=== PATIENT | male | born 1980 | race Caucasian/White ===

== ENCOUNTER 2024-08-17 03:11 | Inpatient (IN) | payer OTHER, SELFPAY ==
[2024-08-16 21:06] VITALS: BP 135/88
[2024-08-16 21:10] VITALS: BP 135/88
--- NOTE | 2024-08-16 21:27 | EDRN ---
When RN entered pt.'s room, pt. had been transferred from EMS stretcher to ER stretcher. Pt. had initially refused to change clothes, refused to get off of multiple items, including bedpan, that lay beneath pt. Pt. is c/o 'lower abdominal pain', pt.
pointing to his rt. flank that radiates to his rt. lower back. RN explained to pt. she is unable to perform abdominal assessment/lower back assessment if he is sitting on bedpan. Pt. then agreeable for RN's to assist w/ turning and removing bedpan.
When pt. turned on side, RN's removed pink bedpan filled w. towels, a can of WD40, 4 water bottles, and 3 jars of peanut butter, and deodorant... all of which was found underneath pt.'s sacrum. Pt. in black tank top, refused to remove. Pt. continues
to ask for his backpack, stating, 'I threw my wallet in there and I don't see it in there now'. No wallet found beneath pt., pt. handed his bag, which staff did not go through.
[2024-08-16 21:33] VITALS: BMI 17.3
--- NOTE | 2024-08-16 21:40 | ED.GENMED ---
History of Present Illness
General
Chief Complaint: Abdominal Pain
Source: patient
Exam Limitations: none
Time Seen by Provider: 08/16/24 21:13
History of Present Illness
History of Present Illness:
This is a 44 year old male that comes in with c/o right sided abd pain. States that this started 4-5 days ago and that at first it was intermittent. States that know the pain has continued and is also in the back. States that he did have a BM 2 days
ago and this is normal for him. States that he had nausea. Denies any fever, chills, chest pain, SOB, vomiting, diarrhea, headache, dizziness, urinary burning.
Past History
Past History
ED Past Medical History: Psychiatric (Anxiety, Depression. Insomnia) and Other (, Vishnu leg wounds . 'Mitral valve Problem' , Constipation, Chronic pain, PVD, MItral valve disorder, Cellulitis, Facial muscle weakness due to Muscular dystrophy, ADHD,
)
ED Past Surgical History: None and Tonsilectomy
Social History
Tobacco: Former smoker
Alcohol: None
Drug: None
Personal: Single
Living: [facility]
Employment: Disabled
Review of Systems
Review of Systems
All Other Systems: ROS reviewed and negative except as documented in HPI and ROS
Constitutional: Reports no symptoms; Denies fever or chills
EENT: Reports no symptoms
Respiratory: Reports no symptoms; Denies cough or trouble breathing
Cardiac: Reports no symptoms; Denies chest pain
ABD/GI: Reports abdominal pain and nausea; Denies vomiting or diarrhea
: Reports no symptoms; Denies dysuria, frequency or urgency
Musculoskeletal: Reports no symptoms
Skin: Reports no symptoms
Neurological: Reports no symptoms; Denies dizzy or headache
Psychiatric: Reports no symptoms
Phy Exam
General Physical Exam
General Presentation: no apparent distress
General age: appears older than age
General Skin: warm and dry
General Habitus: poor hygiene
General Mental: alert
General Hydration: appears well hydrated
ENT Exam
ENT Exam: TM's normal and pharynx normal
Eye Exam
Eye Exam: EOMI
Cardiovascular Exam
Cardiovascular Exam: regular rate/rhythm, no edema and normal peripheral pulses
Pulmonary Exam
Pulmonary Exam: lungs clear, no respiratory distress, no rales, chest non tender, no crackles, no rhonchi, no wheezing and no cough
Gastrointestinal Exam
Gastrointestinal Exam: soft, no organomegaly, no pulsatile mass, non distended, tender (Right sided tenderness with palpation) and other (Hypoactive bowel sounds)
Musculoskeletal Exam
Musculoskeletal Exam: other (Severe foot drop, Patient states that he is unable to sit up for any length of time due to his Muscular distrophy)
Skin Exam
Skin Exam: normal color, warm/dry, no petechia and other (Scratch dickerson noted on the lower extremities. )
Psychiatric Exam
Psychiatric Exam: normal mood/affect
Course
Orders/Labs/Results
Orders:
Orders
08/16/24 21:36
Straight cath- Treatment ONCE
08/16/24 21:39
Iohexol [Omnipaque] See Protocol PO NOW STA
08/16/24 21:40
0.9% Sodium Chloride 500 ml [Nss] 500 ml IV BOLUS
08/16/24 21:41
Ondansetron Injectable [Zofran] 4 mg IV NOW STA
08/16/24 21:55
Complete Blood Count/With Diff Urgent
Comprehensive Metabolic Panel Urgent
UA Reflex to Culture [Urinalysis Reflex To Culture] Urgent
Date Specimen was Collected: 08/16/24
Time Specimen was Collected: 21:36
Urine Microscopic Reflex Cult Urgent
Urine Culture Urgent
PARTH Source: U
Specimen Description:
Date Specimen was Collected: 08/16/24
Time Specimen was Collected: 21:36
08/17/24 00:06
CT Abd/pel W Iv And Oral Contr Urgent
Reason For Exam: Right lower abd pain
Abnormal Lab Results
08/16/24
21:55
MPV 11.1 H fL
(7.4-10.4)
Absolute Neuts (auto) 8.3 H 10^3/uL
(1.4-6.5)
Absolute Lymphs (auto) 0.5 L 10^3/uL
(1.2-3.4)
Neutrophils % 91.4 H %
(42.2-75.2)
Lymphocytes % 5.4 L %
(20.5-51.1)
BUN 22 H mg/dl
(9-20)
Glucose 141 H mg/dl
(70-99)
Urine Ketones Trace A
(Negative)
Ur Occult Blood Reflex 4+ A
(Negative)
Urine Bilirubin 1+ A
(Negative)
Urine RBC 50-60 A /HPF
(0-2)
Urine Bacteria (Reflex) Moderate A
(Negative)
08/16/24 21:55
08/16/24 21:55
Dehydration, Hyperglycemia. Urine negative for infection.
Vital Signs
Initial and Last Documented VS:
Initial Vital Signs
Temp
97.7 F
08/16/24 21:05
Last Documented Vital Signs
Temp Pulse Resp BP Pulse Ox
97.7 F 90 18 114/88 99
08/16/24 21:05 08/16/24 21:10 08/16/24 21:10 08/16/24 23:00 08/16/24 21:22
MDM/Problems Addressed
Differential Diagnosis Includes:
Appendicitis, Constipation
MDM/Problems Addressed:
This is a 44 year old male that comes in with c/o RLQ and pain into his back for the past 4-5 days. States that it was intermittent.
Will check labs, CT scan , give IV fluids
Back into see patient. Explained that he has a very large renal calculus and constipation. Message sent to Dr. Sarabia.
Agree's that patient may not pass this stone but wanted patient to try going back to the [facility]. Patient states that he is already on Chronic pain medication and that he will just be back due to the pain. Message sent again to Dr. Sarabia.
Will admit patient to the hospitalist. Will keep patient NPO as possible procedure tomorrow. Dr Sarabia on Consult
Chronic conditions affecting care:
Chronic pain, Muscular dystrophy
Acute Exacerbation and/or Progression of Chronic Illness:
Chronic pain
*Radiology
Radiology exam reviewed: radiology read reviewed (CT Night hawk- 1.5X 0.8 X 1.3 cm obstructing stone at the right ureteropelvic junction resulting in moderate hydroneprhrosis to level of the stone. Previously the stone was noted to be in the central
intrarenal collecting system. There is stranding of fluid around the right kidney which may be due ), all reviewed NAD by ED Provider (CT cont- may be due to obstructing and/or infection. Please correlate with urinalysis. Small nonobstructing stone
upper pole left kidney and mid pole right kidney. No bowel obstruction. Moderate amount of stool in the colon suggesting constipation. Normal appendix. Gallbladder is unremarkable. ) and other (CT cont- MIld atelectasis lung bases. Degenerative
changes spine and hips)
*Pulse Oximetry
Patient hypoxic: no
*EKG
Interpreted by ED Provider?: NA
*[employer] Counter Associate Interpretation
Rate: [employer] Counter Associate- N/A
*Critical Care Note
Total Time (30-74mins, 75-104mins- exclusive of procedures): Not Applicable
ED Attending Note
-
Portions of this chart may have been created with voice recognition software.� Occasional wrong word or��sound alike� substitutions may have occurred due to the inherent limitations of voice recognition software.
Discharge Plan
Departure
Patient Disposition: Admit
Date of Disposition: 08/17/24
Time of Disposition: 01:55
Admit to: Med/Surg
Presentation/result/management discussed w/ accepting MD/DO: Hospitalist
Patient with high blood pressure during this ER visit?: No
Condition: Good
Covid-19: Not Applicable
Discharge Problem:
Renal calculus, right, Constipation
Prescriptions:
No Action
zolpidem 10 MG tablet
10 mg PO HS
fluticasone propionate 1 SPRAY spray,suspension
2 spray intranasal DAILYPRN PRN (Reason: allergies)
acetaminophen 325 MG tablet
650 mg PO Q4HPRN PRN (Reason: mild pain/temp>100F)
magnesium hydroxide 30 ML suspension
30 ml PO DAILY PRN (Reason: if no bm x 3 days)
bisacodyl [OneLAX Bisacodyl] 10 MG suppository
10 mg TX DAILYPRN PRN (Reason: if mom ineffective after 24h)
naproxen 500 MG tablet
500 mg PO BID
loperamide 2 mg Tablet
2 mg PO DAILYPRN MDD 8MG PRN (Reason: loose stool)
Fleet Enema 19-7 gram/118 mL Enema
118 ml TX DAILYPRN PRN (Reason: if dulcolax ineffective in 24h)
Sarna Original 0.5-0.5 % Lotion
1 applic TOPICAL DAILY
clonazepam 1 mg Tablet
1 mg PO QID Qty: 4 0RF
oxycodone 10 mg Tablet
10 mg PO Q6HPRN PRN (Reason: moderate pain) Qty: 4 0RF
ondansetron [Zofran ODT] 8 mg Tablet,Disintegrating
8 mg PO Q8HPRN PRN (Reason: NAUSEA)
morphine [MS Contin] 60 mg tablet extended release
60 mg PO BID
morphine [MS Contin] 15 mg tablet extended release
15 mg PO BID
lactase [Lactaid Fast Act] 9,000 unit Tablet
9,000 unit PO Q12H PRN (Reason: lactose intolerance)
pantoprazole 40 mg Tablet,Delayed Release (Dr/Ec)
40 mg PO DAILY
alum-mag hydroxide-simeth [Maalox Maximum Strength] 400-400-40 mg/5 mL Suspension
30 ml PO Q6H PRN (Reason: indigestion)
escitalopram oxalate 20 mg Tablet
20 mg PO DAILY
Referrals:
Triston Jones I., DO [Family Provider] -
Interventions
Interventions:
*Risk Screen - Suicide Last Done: 08/16/24 21:34
*General Assessment Last Done: 08/16/24 21:09
*Neglect/Abuse Screening Last Done: 08/16/24 21:09
*ED COVID-19 Vaccine History Last Done: 08/16/24 21:09
ED-Zifohj-Qhplufcdoh Assessment Last Done: 08/16/24 21:32
Discharge Date and Time
Print Language: THAI
[2024-08-16 22:00] VITALS: BP 129/99
[2024-08-16] MEDS: ZOFRAN 4 MG IV (22:02)
[2024-08-16 22:03] LABS: % Basophils 0.2 % (0-2); % Eosinophils 0.1 % (0-6); % Immature Granulocytes 0.3 % (0-0.5); % Lymphocytes 5.4 % (20.5-51.1); % Monocytes 2.6 % (1.7-9.3); % Neutrophils 91.4 % (42.2-75.2); Absolute Lymphocytes 0.5 10^3/uL (1.2-3.4); Absolute Monocytes 0.2 10^3/uL (0.1-0.6); Absolute Neutrophils 8.3 10^3/uL (1.4-6.5); Hematocrit 39.3 % (39.0-52.0); Hemoglobin 13.4 g/dL (13.0-18.0); Mean Corp Hgb Conc. 34.1 g/dL (33.0-37.0); Mean Corpuscular Hgb 28.3 pg (27.0-31.0); Mean Corpuscular Volume 82.9 fL (80.0-94.0); Mean Platelet Volume 11.1 fL (7.4-10.4); Nucleated Red Blood Cells % 0 % (-); Platelet Count 173 10^3/uL (130-400); Red Blood Cell Count 4.74 10^6/uL (4.70-6.10); Red Cell Dist. Width 12.8 % (11.5-14.5); Urine Albumin Trace (Neg - Trace); Urine Bilirubin 1+ (Negative); Urine Character Clear (Clear); Urine Color Yellow; Urine Glucose Negative (Negative); Urine Ketone Trace (Negative); Urine Leukocyte Negative (Negative); Urine Nitrite Negative (Negative); Urine Occult Blood 4+ (Negative); Urine Specific Gravity 1.025 (<1.030); Urine Urobilinogen 1+ (Neg - 1+); White Blood Cell Count 9.1 10^3/uL (4.8-10.8)
[2024-08-16] MEDS: OMNIPAQUE 50 ML PO (22:06)
[2024-08-16] MEDS: NSS 500 IV (22:11)
[2024-08-16 22:12] LABS: Urine Squamous Cell 0-2 /LPF (Few)
[2024-08-16 22:13] LABS: Urine Bacteria Moderate (Negative); Urine Red Blood Cell 50-60 /HPF (0-2); Urine White Cell 0-2 /HPF (0-5)
[2024-08-16 22:24] LABS: ALT (SGPT) 15 U/L (0-50); AST (SGOT) 19 U/L (17-59); Albumin 4.4 g/dl (3.5-5.0); Alkaline Phosphatase 106 U/L (38-126); Blood Urea Nitrogen 22 mg/dl (9-20); Calcium 9.8 mg/dl (8.4-10.2); Carbon Dioxide 25 mmol/L (22-30); Chloride 103 mmol/L (98-107); Estimated Creatinine Clearance 109 ml/min; Glucose 141 mg/dl (70-99); Potassium 3.9 mmol/L (3.5-5.1); Sodium 143 mmol/L (135-145); Total Bilirubin 0.6 mg/dl (0.2-1.3); Total Protein 7.6 g/dl (6.3-8.2); eGFR > 60.00
[2024-08-16 23:00] VITALS: BP 114/88
[2024-08-17] VITALS (9 sets, daily range): BP systolic 96–124; BP diastolic 67–89
[2024-08-17] MEDS: FLOMAX 0.4 MG PO ×2 (01:57→08:46)
[2024-08-17] MEDS: TORADOL 30 MG IV ×2 (01:57→13:31)
--- NOTE | 2024-08-17 02:26 | HPS.HSE ---
Family Physician
-
Family Physician: Triston Jones
Chief Complaint
-
Flank Pain
History of Present Illness
Patient is a 44y M with PMH significant for muscular dystrophy who presents to ED complaining of R flank pain and hematuria. Patient states that he has noted hematuria x months - but attributed this color change to muscle breakdown from his
muscular dystrophy. he noted R flank pain over the past 5 days - much more severe this evening. He has had nausea with emesis here in the ED. CT scan shows large proximal R ureter stone and pateint will be admitted for further evaluation and
treatment.
Medical History
Past Medical History
Past Medical History: Reports Other
Additional Past Medical History:
Muscular Dystrophy
Functional Paraplegia
GERD
Chronic Pain Syndrome
Chronic Opioid Dependence
Past Surgical History: Reports None
Social History
Tobacco: Non-smoker
Alcohol: None
Drug: None
Living: Half-Way
Family History
Family History: Not pertinent
Allergies / Home Medications
Allergies reflects when Allergies were last updated in [facility].
Home Medications with original date entered in [facility]
Allergy/Medication List:
Allergies
Allergy/AdvReac Type Severity Reaction Status Date / Time
No Known Allergies Allergy Verified 08/16/24 21:05
Home Medications
fluticasone propionate 50 mcg/actuation nasal spray,suspension 2 spray intranasal DAILYPRN PRN allergies 07/20/16
zolpidem 10 mg tablet 10 mg PO HS Sleep 07/20/16
acetaminophen 325 mg tablet 650 mg PO Q4HPRN PRN mild pain/temp>100F 06/17/21
bisacodyl 10 mg rectal suppository (OneLAX Bisacodyl) 10 mg TX DAILYPRN PRN if mom ineffective after 24h 06/17/21
magnesium hydroxide 400 mg/5 mL oral suspension 30 ml PO DAILY PRN if no bm x 3 days 06/17/21
camphor-menthol 0.5 %-0.5 % lotion (Sarna Original) 1 applic topical DAILY b/l lower extremity for itching 10/31/22
loperamide 2 mg tablet 2 mg PO DAILYPRN PRN loose stool 10/31/22
sodium phosphates 19 gram-7 gram/118 mL enema (Fleet Enema) 118 ml TX DAILYPRN PRN if dulcolax ineffective in 24h 10/31/22
clonazepam 1 mg tablet 1 mg PO QID #4 tabs 11/03/22
oxycodone 10 mg tablet 10 mg PO Q6HPRN PRN moderate pain #4 tabs 11/03/22
morphine 15 mg tablet,extended release (MS Contin) 15 mg PO BID TAKE WITH 60MG 11/30/22
morphine 60 mg tablet,extended release (MS Contin) 60 mg PO BID TAKE [id number] 11/30/22
aluminum-mag hydroxide-simethicone 400 mg-400 mg-40 mg/5 mL oral susp (Maalox Maximum Strength) 30 ml PO Q6H PRN indigestion 01/01/23
escitalopram oxalate 20 mg tablet 20 mg PO DAILY 01/01/23
pantoprazole 40 mg tablet,delayed release 40 mg PO DAILY 01/01/23
cetirizine 10 mg tablet 10 mg PO DAILY PRN allergy 08/17/24
ipratropium 20 mcg-albuterol 100 mcg/actuation mist for inhalation (Combivent Respimat) 1 puff inhalation Q6H PRN sob, wheezing 08/17/24
mineral oil 3 drp otic (ear) .QTUES 08/17/24
promethazine 12.5 mg tablet 12.5 mg PO Q8H PRN allergy/nausea 08/17/24
testosterone 50 mg/5 gram (1 %) transdermal gel 1 tube transdermal DAILY 08/17/24
Review of Systems
-
History Source: Patient
A 12 point ROS was completed and negative except as noted: Yes
Constitutional: Denies Fever or Chills
Respiratory: Denies Cough or Trouble Breathing
Cardiac: Denies Chest Pain or Palpitations
Abdomen/GI: Reports Abdominal Pain, Nausea and Vomiting; Denies Diarrhea or Constipated
: Reports Flank Pain and Bleeding; Denies Dysuria or Frequency
Neurological: Reports Weakness; Denies Dizzy or Headache
Psych: Reports Depression and Anxiety
Physical Exam
Vital Signs
Vital Signs
Temp Pulse Resp BP Pulse Ox
97.7 F 90 18 114/88 99
08/16/24 21:05 08/16/24 21:10 08/16/24 21:10 08/16/24 23:00 08/16/24 21:22
Physical Exam
General: Other (44y M in no acute distress.)
HEENT: Other (Dry MM. Poor dentition.)
Respiratory: Clear; No Wheezes, Rales or Rhonchi
Cardiac: S1/S2 and Regular Rhythm; No Murmur
GI: Soft, Non Distended, Normal Bowel Sounds and Other (Mild R abdominal tenderness. No rebound / guarding.)
Genito-urinary: Costovertebral angle tend (Pos R CVAT.)
Neuro: AO x 3 and Other (LE weakness / contractures - chronic due to muscular dystrophy.)
Laboratory Results
-
08/16/24 21:55
08/16/24 21:55
Laboratory Results
Total Bilirubin 0.6 mg/dl (0.2-1.3) 08/16/24 21:55
AST 19 U/L (17-59) 08/16/24 21:55
ALT 15 U/L (0-50) 08/16/24 21:55
Alkaline Phosphatase 106 U/L (38-126) 08/16/24 21:55
Impression/Plan
-
A/P: Patient is a 44y M with PMH significant for muscular dystrophy who presents to ED complaining of R flank pain x several days.
Right Ureteral Stone
- Admit for further evaluation and treatment.
- Flank pain, N/V, etc.
- CT shows large proximal R ureteral stone.
- No systemic fevers / chills. UA does not appear c/w infection.
- NPO, IVFs, pain control.
- Urology consulted for probable OR in the AM.
Muscular Dystrophy
Chronic Pain Syndrome
Chronic Opioid Dependence
- Stable. No new weakness, pain, etc.
- Continue current outpatient medication regimen without changes.
- Frequent repositioning, etc.
DVT Prophylaxis: SCDs
Code Status: Full
--- NOTE | 2024-08-17 03:10 | PTCARENOTE ---
Assumed care of Pt. Pt aaox3, uncooperative at times. This RN asked the Pt to remove his tank top because it had throw up on it and he continuously declines and says 'They can take it off of me when I am knocked out.' Pt rates pain 02/02. Denies
nausea at this time. pox 98% on RA. vss. Call jones within reach.
[2024-08-17] MEDS: NSS 1000 IV ×2 (06:01→17:19)
[2024-08-17 06:12] LABS: Hematocrit 36.3 % (39.0-52.0); Hemoglobin 12.4 g/dL (13.0-18.0); Mean Corp Hgb Conc. 34.2 g/dL (33.0-37.0); Mean Corpuscular Hgb 29.5 pg (27.0-31.0); Mean Corpuscular Volume 86.4 fL (80.0-94.0); Mean Platelet Volume 11.8 fL (7.4-10.4); Platelet Count 174 10^3/uL (130-400); Red Cell Dist. Width 12.6 % (11.5-14.5); White Blood Cell Count 8.2 10^3/uL (4.8-10.8)
[2024-08-17 06:41] LABS: Blood Urea Nitrogen 20 mg/dl (9-20); Calcium 8.7 mg/dl (8.4-10.2); Carbon Dioxide 25 mmol/L (22-30); Chloride 106 mmol/L (98-107); Estimated Creatinine Clearance 96 ml/min; Glucose 112 mg/dl (70-99); Potassium 4.2 mmol/L (3.5-5.1); Sodium 142 mmol/L (135-145); eGFR > 60.00
--- NOTE | 2024-08-17 08:44 | CONS.URO ---
Consultation
-
Performing Provider: No
Reason for Consultation: Stone
Medical History
History of Present Illness
44M without prior urologic history
PMH significant for muscular dystrophy who presents to ED complaining of R flank pain and hematuria. Patient states that he has noted hematuria for a few months - but attributed this color change to muscle breakdown from his muscular dystrophy.
5 days ago noticed onset and worsening of R flank pain
Has had nausea with emesis in the ER, pain better controlled after toradol
CT scan shows large proximal R ureter stone
Needed to be straight cathed in the ER on admission he says due to pain but subsequently has been able to void normally
No fevers/chills and no signs of sepsis
Past Medical History
Past Medical History: Other (Muscular Dystrophy Functional Paraplegia GERD Chronic Pain Syndrome Chronic Opioid Dependence)
Past Surgical History: None
Social History
Tobacco: Non-smoker
Alcohol: None
Drug: None
Family History
Family History: Reviewed & Not Pertinent
Allergies/Home Medications
Allergies
Allergy/AdvReac Type Severity Reaction Status Date / Time
No Known Allergies Allergy Verified 08/16/24 21:05
Home Medications
�Medication �Instructions �Recorded �Confirmed �Type
fluticasone propionate 50 2 spray intranasal DAILYPRN PRN 07/20/16 08/17/24 History
mcg/actuation nasal allergies
spray,suspension
zolpidem 10 mg tablet 10 mg PO HS Sleep 07/20/16 08/17/24 History
acetaminophen 325 mg tablet 650 mg PO Q4HPRN PRN mild 06/17/21 08/17/24 History
pain/temp>100F
bisacodyl 10 mg rectal suppository 10 mg ME DAILYPRN PRN if mom 06/17/21 08/17/24 History
(OneLAX Bisacodyl) ineffective after 24h
magnesium hydroxide 400 mg/5 mL 30 ml PO DAILYPRN PRN if no bm x 3 06/17/21 08/17/24 History
oral suspension days
camphor-menthol 0.5 %-0.5 % lotion 1 applic topical DAILY b/l lower 10/31/22 08/17/24 History
(Vanessa Original) extremity for itching
loperamide 2 mg tablet 2 mg PO DAILYPRN PRN loose stool 10/31/22 08/17/24 History
sodium phosphates 19 gram-7 118 ml ME DAILYPRN PRN if dulcolax 10/31/22 08/17/24 History
gram/118 mL enema (Fleet Enema) ineffective in 24h
clonazepam 1 mg tablet 1 mg PO QID #4 tabs 11/03/22 08/17/24 Rx
oxycodone 10 mg tablet 10 mg PO Q6HPRN PRN moderate pain 11/03/22 08/17/24 Rx
#4 tabs
morphine 15 mg tablet,extended 15 mg PO BID TAKE WITH 60MG 11/30/22 08/17/24 History
release (MS Contin)
morphine 60 mg tablet,extended 60 mg PO BID TAKE [id number] 11/30/22 08/17/24 History
release (MS Contin)
escitalopram oxalate 20 mg tablet 20 mg PO DAILY 01/01/23 08/17/24 History
pantoprazole 40 mg tablet,delayed 40 mg PO DAILY 01/01/23 08/17/24 History
release
aluminum-mag hydroxide-simethicone 15 ml PO Q6HPRN PRN upset stomach 08/17/24 08/17/24 History
225 mg-200 mg-25 mg/5 mL oral susp
cetirizine 10 mg tablet 10 mg PO DAILYPRN PRN allergy 08/17/24 08/17/24 History
ipratropium 20 mcg-albuterol 100 1 puff inhalation R Q6HPRN PRN 08/17/24 08/17/24 History
mcg/actuation mist for inhalation sob, wheezing
(Combivent Respimat)
mineral oil 3 drp TU both ears 08/17/24 08/17/24 History
promethazine 12.5 mg tablet 12.5 mg PO Q8HPRN PRN 08/17/24 08/17/24 History
allergy/nausea
testosterone 50 mg/5 gram (1 %) 50 mg transdermal DAILY 08/17/24 08/17/24 History
transdermal gel (Testim)
Physical Exam
Vital Signs
Vital Signs
Temp Pulse Resp BP Pulse Ox
99.1 F 90 18 114/88 99
08/17/24 03:08 08/16/24 21:10 08/16/24 21:10 08/16/24 23:00 08/16/24 21:22
Lab / Testing Results
Laboratory Results
08/17/24 05:57
08/17/24 05:57
Physical Exam
General: Well Developed, Well Nourished and No Apparent Distress
Respiratory: Non Labored Respirations
GI: Soft and Non Tender
Assessment / Plan
-
44M with muscular dystrophy presenting with large R proximal ureteral stone
Admitted for pain control and stone management
- UA not grossly infected but with moderate bacteria. Probably contaminant. Culture pending
- Start ceftriaxone for prophylaxis
- If no evidence of systemic infection, plan for cystoscopy and stent placement with attempt at ureteroscopy and stone extraction if able
- Okay for diet today, NPO at [facility]
Toradol as needed for pain episodes which have been effective for him in the ED
[2024-08-17] MEDS: LEXAPRO 20 MG PO (08:47)
[2024-08-17] MEDS: DILAUDID 0.5 MG IV ×2 (08:47→19:12)
[2024-08-17] MEDS: PROTONIX 40 MG PO (08:47)
[2024-08-17] MEDS: MS CONTIN (EXTENDED RELEASE) 60 MG PO ×2 (08:47→20:10)
[2024-08-17] MEDS: MS CONTIN (EXTENDED RELEASE) 15 MG PO ×2 (08:47→20:10)
[2024-08-17] MEDS: KLONOPIN 1 MG PO ×4 (10:52→21:25)
[2024-08-17] MEDS: ROCEPHIN 1000 MG IV (10:53)
[2024-08-17] MEDS: STERILE WATER FOR INJECTION 10 ML IV (10:53)
--- NOTE | 2024-08-17 12:18 | W.PN.UPDATE ---
Update Note
Progress Note Update
Seen and examined independent of overnight physician. Nonbillable note
states improvement in flank pain. Denies prior history of renal stones.
General: Other (44y M in no acute distress.)
HEENT: Other (Dry MM. Poor dentition.)
Respiratory: Clear; No Wheezes, Rales or Rhonchi
Cardiac: S1/S2 and Regular Rhythm; No Murmur
GI: Soft, Non Distended, Normal Bowel Sounds and Other (Mild R abdominal tenderness. No rebound / guarding.)
Genito-urinary: Costovertebral angle tend (Pos R CVAT.)
Neuro: AO x 3 and Other (LE weakness / contractures - chronic due to muscular dystrophy.)
Psych-talkative
A/P: Patient is a 44y M with PMH significant for muscular dystrophy who presents to ED complaining of R flank pain x several days.
Large Right Ureteral Stone
- CT shows large proximal R ureteral stone. Flomax for now
- No systemic fevers / chills.
- Started on rocephin per urology. await Urine culture.
- Urology consulted for probable OR in the AM.
Muscular Dystrophy with functional paraplegia
Chronic Pain Syndrome
Chronic Opioid Dependence on daily basis
- Stable. No new weakness, pain, etc.
- Continue current outpatient medication regimen without changes.
- Frequent repositioning, etc. started on bowel regimen
Depression/Mood disorder
-Cont with klonopin and Lexapro
Suspected severe protein caloric malnutrition of chronic illness
Dietary eval
DVT Prophylaxis: SCDs
Code Status: Full
[2024-08-17] MEDS: ZYRTEC 10 MG PO (13:30)
[2024-08-17] MEDS: ROXICODONE 10 MG PO (15:10)
[2024-08-17] MEDS: SENOKOT-S PO ×2 (20:11→20:24)
[2024-08-18] VITALS (10 sets, daily range): BP systolic 116–137; BP diastolic 76–97; BMI 17.3
[2024-08-18] MEDS: ROXICODONE 10 MG PO ×2 (02:56→14:12)
[2024-08-18] MEDS: TORADOL 30 MG IV ×2 (02:56→18:17)
[2024-08-18] MEDS: NSS 1000 IV (02:58)
[2024-08-18] MEDS: DILAUDID 0.5 MG IV ×2 (05:58→12:34)
[2024-08-18] MEDS: KLONOPIN 1 MG PO ×4 (09:46→22:44)
[2024-08-18] MEDS: LEXAPRO 20 MG PO (09:46)
[2024-08-18] MEDS: MS CONTIN (EXTENDED RELEASE) 15 MG PO ×2 (09:46→20:13)
[2024-08-18] MEDS: PROTONIX 40 MG PO (09:46)
[2024-08-18] MEDS: FLOMAX 0.4 MG PO (09:46)
[2024-08-18] MEDS: SENOKOT-S 1 TABLET PO (09:46)
[2024-08-18] MEDS: MS CONTIN (EXTENDED RELEASE) 60 MG PO ×2 (09:46→20:13)
--- NOTE | 2024-08-18 10:05 | PTCARENOTE ---
Patient became verbally aggressive and physically intimidating to nursing staff (use of insulting and profane language and shaking closed fist in nurse's face) while staff attempting to prepare him to be transported to OR. Code vipul called and
patient escorted to OR with security in addition to transport volunteer and staff.
--- NOTE | 2024-08-18 10:20 | W.PN.UPDATE ---
Update Note
Progress Note Update
a code purple was called prior to the patient being brought down to pre-op holding
in the area- pt seems calm- says he had a disagreement with the nurse taking care of him
i re-reviewed the clinical scenario and surgical plan with the patient including the possibility of placing a stent only and/or the need for secondary procedures given his stone size/positon/etc
he understands and consents
feel it is okay to proceed
[2024-08-18 10:24] LABS: % Basophils 0.4 % (0-2); % Eosinophils 2.6 % (0-6); % Immature Granulocytes 0.2 % (0-0.5); % Lymphocytes 31.7 % (20.5-51.1); % Monocytes 11.3 % (1.7-9.3); % Neutrophils 53.8 % (42.2-75.2); Absolute Eosinophils 0.2 10^3/uL (0-0.7); Absolute Lymphocytes 1.8 10^3/uL (1.2-3.4); Absolute Monocytes 0.6 10^3/uL (0.1-0.6); Absolute Neutrophils 3.1 10^3/uL (1.4-6.5); Hematocrit 33.4 % (39.0-52.0); Hemoglobin 10.8 g/dL (13.0-18.0); Mean Corp Hgb Conc. 32.3 g/dL (33.0-37.0); Mean Corpuscular Hgb 28.3 pg (27.0-31.0); Mean Corpuscular Volume 87.7 fL (80.0-94.0); Nucleated Red Blood Cells % 0 % (-); Red Blood Cell Count 3.81 10^6/uL (4.70-6.10); Red Cell Dist. Width 13.1 % (11.5-14.5); White Blood Cell Count 5.7 10^3/uL (4.8-10.8)
--- NOTE | 2024-08-18 10:48 | W.PN.HOSP.TC ---
Today's Communication/Plan
-
await OR finding and post OP urology recs.
stop IVF
Abx per urology
Assessment / Plan
Assessment / Plan
General: Other (44y M in no acute distress.)
HEENT: Other (Dry MM. Poor dentition.)
Respiratory: Clear; No Wheezes, Rales or Rhonchi
Cardiac: S1/S2 and Regular Rhythm; No Murmur
GI: Soft, Non Distended, Normal Bowel Sounds and Other (Mild R abdominal tenderness. No rebound / guarding.)
Genito-urinary: Costovertebral angle tend (Pos R CVAT.)
Neuro: AO x 3 and Other (LE weakness / contractures - chronic due to muscular dystrophy.)
Psych-talkative
A/P: Patient is a 44y M with PMH significant for muscular dystrophy who presents to ED complaining of R flank pain x several days.
Large Right Ureteral Stone
- CT shows large proximal R ureteral stone. Flomax for now
- No systemic fevers / chills.
- Started on rocephin per urology. Ucx no growth
- Urology consulted- OR today. await OR finding and post OP urology recs.
Muscular Dystrophy with functional paraplegia
Chronic Pain Syndrome
Chronic Opioid Dependence on daily basis
- Stable. No new weakness, pain, etc.
- Continue current outpatient medication regimen without changes.
- Frequent repositioning, etc. started on bowel regimen
Depression/Mood disorder
-Cont with klonopin and Lexapro
Suspected severe protein caloric malnutrition of chronic illness
Dietary eval
DVT Prophylaxis: SCDs
Code Status: Full
Anticipated Discharge: Within 24 hours
Subjective/Interval History
-
Date of Service: August 18, 2024
Pt was calm earlier but was asking for his pain medication
eventually code vipul was called on him prior to go to OR
Objective Data
-
Labs:
Laboratory Results
08/18/24
08:37
WBC 5.7
Hgb 10.8 L
Hct 33.4 L
Plt Count Pending
Sodium Pending
Potassium Pending
Chloride Pending
Carbon Dioxide Pending
BUN Pending
Creatinine Pending
Glucose Pending
Calcium Pending
Vital Signs:
Vital Signs
Temp Pulse Resp BP Pulse Ox
97.8 F 78 19 119/87 97
08/18/24 08:08 08/18/24 08:08 08/18/24 08:08 08/18/24 08:08 08/18/24 08:08
I&O
08/17/24 08/18/24 08/19/24
06:59 06:59 06:59
Intake Total 720 / 720
Output Total 150 / 150
Balance -150 / -150 720 / 720
[2024-08-18 11:29] LABS: Blood Urea Nitrogen 25 mg/dl (9-20); Calcium 8.4 mg/dl (8.4-10.2); Carbon Dioxide 28 mmol/L (22-30); Chloride 107 mmol/L (98-107); Estimated Creatinine Clearance 85 ml/min; Glucose 82 mg/dl (70-99); Potassium 4.6 mmol/L (3.5-5.1); Sodium 143 mmol/L (135-145); eGFR > 60.00
--- NOTE | 2024-08-18 11:40 | W.IMMPOSTOP ---
Surgical Immed Post Op Note
-
Primary Surgeon:
mary
Assisting Surgeon:
Pre-op Diagnosis:
obstructing right prox ureteral stone
Post-op Diagnosis:
same
Procedure Performed:
cysto, right retrograde, right ureteroscopy/partial stone fragmentation,stent
Anesthesia Type:
gen
Specimen / Cultures:
none
Estimated Blood Loss:
2cc
Complications:
none
Operative Findings:
pt had completely obstructing stone- still full nephrogram
originally could not get wire to bypass stone
able to get rigind scope up to stone and partially fragement to allow for direct vision wire passage
could not gragment any further with rigid scop and access sheath would not pass
able to pass 4.8 slovak stent with good coil
plan
flomax/pyridium/pain control
would hold lovenox for 24hrs
PT HAS URETHRAL FALSE PASSAGE- NO ATTEMPTS SHOULD BE MADE TO CATH- CALL UROLOGY IF NEEDED
eventual discharge with outpt f/u to discuss second stage procedure
[2024-08-18] MEDS: ROCEPHIN IV (12:06)
[2024-08-18] MEDS: NSS IV (14:17)
[2024-08-18] MEDS: STERILE WATER FOR INJECTION 10 ML IV (14:20)
[2024-08-18 15:15] LABS: Platelet Count 130 10^3/uL (130-400)
--- NOTE | 2024-08-18 16:08 | CM ---
CM reviewed chart, spoke with Mary Jo in Admissions, confirmed patient is bedbound, LTC resident at [facility]. Patient seen bedside, confirms he has been a resident at since 2014. Patient PCP Dr. Jones, pharmacy [facility] in [place]. CM
will place referral in [facility] for return of LTC resident. CM will continue to follow for all discharge planning needs.
Plan; return to [facility] LT
[2024-08-18] MEDS: Pyridium 100 MG PO ×2 (18:09→23:44)
[2024-08-18] MEDS: FLUSH (NSS) 1 FLUSH IV (18:18)
[2024-08-18] MEDS: SENOKOT-S PO (20:13)
[2024-08-19] MEDS: TORADOL 30 MG IV ×3 (01:02→15:58)
[2024-08-19] MEDS: ROXICODONE 10 MG PO ×3 (01:02→15:58)
[2024-08-19] MEDS: Pyridium 100 MG PO ×2 (07:36→15:58)
[2024-08-19] MEDS: KLONOPIN 1 MG PO ×2 (07:36→12:07)
[2024-08-19] MEDS: MS CONTIN (EXTENDED RELEASE) 60 MG PO (07:36)
[2024-08-19] MEDS: LEXAPRO 20 MG PO (07:36)
[2024-08-19] MEDS: FLOMAX 0.4 MG PO (07:36)
[2024-08-19] MEDS: PROTONIX 40 MG PO (07:36)
[2024-08-19] MEDS: SENOKOT-S 1 TABLET PO (07:36)
[2024-08-19] MEDS: MS CONTIN (EXTENDED RELEASE) 15 MG PO (07:36)
[2024-08-19 07:47] LABS: % Basophils 0.2 % (0-2); % Eosinophils 0.2 % (0-6); % Immature Granulocytes 0.2 % (0-0.5); % Lymphocytes 19.2 % (20.5-51.1); % Monocytes 8.4 % (1.7-9.3); % Neutrophils 71.8 % (42.2-75.2); Absolute Monocytes 0.4 10^3/uL (0.1-0.6); Absolute Neutrophils 3.8 10^3/uL (1.4-6.5); Hematocrit 35.8 % (39.0-52.0); Hemoglobin 11.9 g/dL (13.0-18.0); Mean Corp Hgb Conc. 33.2 g/dL (33.0-37.0); Mean Corpuscular Hgb 29.1 pg (27.0-31.0); Mean Corpuscular Volume 87.5 fL (80.0-94.0); Mean Platelet Volume 11.6 fL (7.4-10.4); Nucleated Red Blood Cells % 0 % (-); Platelet Count 142 10^3/uL (130-400); Red Blood Cell Count 4.09 10^6/uL (4.70-6.10); Red Cell Dist. Width 12.6 % (11.5-14.5); White Blood Cell Count 5.3 10^3/uL (4.8-10.8)
[2024-08-19 07:53] LABS: Blood Urea Nitrogen 18 mg/dl (9-20); Calcium 8.7 mg/dl (8.4-10.2); Carbon Dioxide 26 mmol/L (22-30); Chloride 106 mmol/L (98-107); Estimated Creatinine Clearance > 125 ml/min; Glucose 109 mg/dl (70-99); Potassium 4.1 mmol/L (3.5-5.1); Sodium 143 mmol/L (135-145); eGFR > 60.00
[2024-08-19 08:00] VITALS: BP 137/81
[2024-08-19] MEDS: STERILE WATER FOR INJECTION 10 ML IV (09:03)
[2024-08-19] MEDS: ROCEPHIN 1000 MG IV (09:04)
[2024-08-19] MEDS: ZYRTEC 10 MG PO (09:07)
--- NOTE | 2024-08-19 11:27 | CM ---
Per physician patient has been cleared for discharge today, patient to return to [facility] by ambulance due to paraplegia.
[facility]
Report#[phone]

Plan; Discharge back to [facility] today.
--- NOTE | 2024-08-19 11:56 | W.PN.HOSP.TC ---
Addendum entered and electronically signed by Daniel Mcmanus MD 08/20/24 13:53:
Patient called from alf requesting Toradol as it significantly elevated his pain due to renal stone. Patient was given prescribed his morphine prescription. Toradol 10 mg 3 times daily as needed prescription was printed and given to unit
clerk television production to fax it over to [facility].
Original Note:
Today's Communication/Plan
-
dc back to [facility]
OP urology f/u
flomax/abx
Assessment / Plan
Assessment / Plan
General: talkative, drinking ensure
HEENT: Poor dentition
Respiratory: Clear; No Wheezes, Rales or Rhonchi
Cardiac: S1/S2 and Regular Rhythm; No Murmur
GI: Soft, Non Distended, Normal Bowel Sounds
Neuro: AO x 3 and Other (LE weakness / contractures - chronic due to muscular dystrophy.)
Psych-talkative
A/P: Patient is a 44y M with PMH significant for muscular dystrophy who presents to ED complaining of R flank pain x several days.
Large Right Ureteral Stone
- CT shows large proximal R ureteral stone. Flomax for now and can be continued.
- No systemic fevers / chills.
- Started on rocephin per urology. Ucx no growth.
- Urology consulted- OP f/u for stone management. Cont flomax on dc. Abx prophylactic on dc per urology.
Muscular Dystrophy with functional paraplegia
Chronic Pain Syndrome
Chronic Opioid Dependence on daily basis
- Stable. No new weakness, pain, etc.
- Continue current outpatient medication regimen without changes.
- Frequent repositioning, etc. started on bowel regimen
Depression/Mood disorder
-Cont with klonopin and Lexapro
Suspected severe protein caloric malnutrition of chronic illness
Dietary eval
DVT Prophylaxis: SCDs
Code Status: Full
More than 30 minutes spent in discharge including
Final examination of the patient
Summarizing hospital stay
Instructions for continuing care to all relevant caregivers
Preparation of discharge records, prescriptions, and referral forms
Total time spent (in minutes): 45
Anticipated Discharge: Today
Subjective/Interval History
-
Date of Service: August 19, 2024
No flank pain
remains afebrile
BP stable
Objective Data
-
Labs:
Laboratory Results
08/19/24
07:15
WBC 5.3
Hgb 11.9 L
Hct 35.8 L
Plt Count 142
Sodium 143
Potassium 4.1
Chloride 106
Carbon Dioxide 26
BUN 18
Creatinine 0.6 L
Glucose 109 H
Calcium 8.7
Vital Signs:
Vital Signs
Temp Pulse Resp BP Pulse Ox
97.8 F 105 18 137/81 98
08/19/24 08:00 08/19/24 08:00 08/19/24 08:00 08/19/24 08:00 08/19/24 08:00
I&O
08/18/24 08/19/24 08/20/24
06:59 06:59 06:59
Intake Total 720 / 720 640 / 640
Output Total 1150 / 1150
Balance 720 / 720 -510 / -510
--- NOTE | 2024-08-19 11:58 | W.PN.UPDATE ---
Update Note
Progress Note Update
i spoke to patient by phone today
again reviewed the operative finding and the reasons that his stone was not treated yesterday and the need for several weeks of ureteral/stent dilation before re-attempting procedure
pt aware and says he understands
cleared for discharge from my standpoint with outpatient follow up
--- NOTE | 2024-08-19 12:15 | W.DCSUMMARY ---
Discharge Summary
Discharge Data
Date of Admission: 08/17/24
Date of Discharge: 08/19/24
-
Pending Results: No
Hospital Course
44-year-old male past medical history of muscular dystrophy, depression, severe protein caloric malnutrition, chronic pain syndrome, chronic opioid dependent on daily basis who is presenting with complaints of right flank pain. Patient went CT
abdomen pelvis which showed patient had a large proximal right ureteral stone. Patient was kept n.p.o. with IV fluids and IV ceftriaxone. Patient was eval by urology. Patient underwent cystoscopy with right retrograde, right ureteroscopy/partial
stone fragmentation and ureteral stent placement. Postop patient did well without any flank pain. Patient was continued on IV antibiotics and was transitioned to p.o. antibiotics on discharge per urology recommendation. Patient was started on
Flomax. Patient was continued on his chronic home medications. Patient urine culture without growth. Patient blood pressure was stable. Patient remained afebrile. Patient be discharged back to previous living situation recommendation to
follow-up with urology for further stone and ureteral stent management. Case was discussed with urology on discharge and they agreed for discharge to SNF.
Discharge Plan
-
Patient Disposition: Longterm/SNF
Discharge Diagnosis/Procedures: Large Right ureter stone
Status post cystoscopy, right retrograde, right ureteroscopy/partial stone fragmentation and ureteral stent placement
Condition: Fair
Diet: Regular
Activity: With assistance and As tolerated
Driving Restrictions: No driving
Referrals:
Triston Jones DO [Family Provider] -
Stevenson Allred Jr., MD [Active] - in less than 1 week (call 08/22/24 to make appt for management of ureteral stent and stone management)
Prescriptions:
New
tamsulosin 0.4 mg Capsule
0.4 mg PO DAILY 30 Days Qty: 30 0RF
cefdinir 300 mg capsule
300 mg PO BID Qty: 7 0RF
Continued
zolpidem 10 MG tablet
10 mg PO HS
fluticasone propionate 1 SPRAY spray,suspension
2 spray intranasal DAILYPRN PRN (Reason: allergies)
acetaminophen 325 MG tablet
650 mg PO Q4HPRN PRN (Reason: mild pain/temp>100F)
magnesium hydroxide 30 ML suspension
30 ml PO DAILYPRN PRN (Reason: if no bm x 3 days)
bisacodyl [OneLAX Bisacodyl] 10 MG suppository
10 mg MO DAILYPRN PRN (Reason: if mom ineffective after 24h)
Fleet Enema 19-7 gram/118 mL Enema
118 ml MO DAILYPRN PRN (Reason: if dulcolax ineffective in 24h)
Sarna Original 0.5-0.5 % Lotion
1 applic TOPICAL DAILY
pantoprazole 40 mg Tablet,Delayed Release (Dr/Ec)
40 mg PO DAILY
escitalopram oxalate 20 mg Tablet
20 mg PO DAILY
cetirizine 10 mg Tablet
10 mg PO DAILYPRN PRN (Reason: allergy)
promethazine 12.5 mg Tablet
12.5 mg PO Q8HPRN PRN (Reason: allergy/nausea)
testosterone [Testim] 50 mg/5 gram (1 %) Gel
50 mg TRANSDERMAL DAILY
mineral oil Drops
3 drp TU
Combivent Respimat 20-100 mcg/actuation Mist
1 puff INHALATION R Q6HPRN PRN (Reason: sob, wheezing)
alum-mag hydroxide-simeth 225-200-25 mg/5 mL Suspension
15 ml PO Q6HPRN PRN (Reason: upset stomach)
clonazepam 1 mg Tablet
1 mg PO QID 3 Days Qty: 12 0RF
morphine [MS Contin] 60 mg tablet extended release
60 mg PO BID Qty: 6 0RF
morphine [MS Contin] 15 mg tablet extended release
15 mg PO BID Qty: 6 0RF
oxycodone 10 mg Tablet
10 mg PO Q6HPRN PRN (Reason: moderate pain) Qty: 7 0RF
Discontinued
loperamide 2 mg Tablet
2 mg PO DAILYPRN MDD 8MG PRN (Reason: loose stool)
Discharge Orders:
Discharge Patient (As Directed); Ordered 08/19/24
Ordered By: Daniel Mcmanus
Discharge Date and Time
Discharge Date/Time: 08/19/24 17:35
Print Language: MALAY
[2024-08-19 15:00] VITALS: BP 116/83
== END 2024-08-19 17:35 | DRG 659 ==
LOC: 4 WEST ACU 03:11
PROVIDERS: Clinical Nurse Specialist Family Health; Specialist; ADMITTING PHYSICIAN Hospitalist; ATTENDING PHYSICIAN Hospitalist; CONSULT PHYSICIAN Urology; EMERGENCY PHYSICIAN Student in an Organized Health Care Education/Training Program; FAMILY PHYSICIAN Internal Medicine
PROC: 0TC78ZZ Extirpation of Matter from Left Ureter, Via Natural or Artificial Opening Endoscopic (ICD-10-PCS; 2024-08-18)
PROC: 0T768DZ Dilation of Right Ureter with Intraluminal Device, Via Natural or Artificial Opening Endoscopic (ICD-10-PCS; 2024-08-18)
DX: N20.2 Calculus of kidney with calculus of ureter (principal); E43 Unspecified severe protein-calorie malnutrition; F11.20 Opioid dependence, uncomplicated; Z68.1 Body mass index [BMI] 19.9 or less, adult; Z87.891 Personal history of nicotine dependence; K59.00 Constipation, unspecified; G71.00 Muscular dystrophy, unspecified; G89.4 Chronic pain syndrome; F32.A Depression, unspecified; I73.9 Peripheral vascular disease, unspecified
CPT/HCPCS: 71045; 74177; 74420; 76000; 80048; 80053; 81003; 81015; 85025; 85027; 87086; A4300; C1894; C2617; Q9967

== ENCOUNTER 2024-09-06 06:22 | Day surgery (SDC) | payer OTHER, SELFPAY ==
[2024-09-06] VITALS (7 sets, daily range): BP systolic 119–148; BP diastolic 73–112
--- NOTE | 2024-09-06 13:54 | PTCARENOTE ---
Assisted with getting patient ready for surgery. Patient was very specific with what the nurses could and could not remove from his bed. Patient came from care facility with several blankets and towels propped under him and around him. Patient even
refused to change into gown upon arrival to [facility]. Before transferring to OR, EDUCATOR SENIOR CLIN[employer] noticed a bottle laying under patient - upon inspection, it was a Gatorade bottle. A can of DW40, spray deodorant, and large particles of food in the patients bed.
Bottles removed and patient taken to OR.
[2024-09-06] MEDS: DETROL LA 4 MG PO (14:10)
[2024-09-06] MEDS: ROXICODONE 5 MG PO (14:41)
== END 2024-09-06 15:04 ==
LOC: SDS 06:22
PROVIDERS: ATTENDING PHYSICIAN Specialist
DX: G71.00 Muscular dystrophy, unspecified (principal); N20.1 Calculus of ureter
CPT/HCPCS: 52356; 74018; 76000; 82365; 87070; C1894; C2617